=== PATIENT | male | born 1960 | race Caucasian/White ===

== ENCOUNTER → 2018-10-28 | Outpatient (CLI) | payer OTHER ==
--- NOTE | 2018-10-28 18:36 | REP ---
Right ribs five views: There is no rib fracture or other rib abnormality. PA chest: Comparison is 05/25/2013. There is minor atelectasis above the left hemidiaphragm. The lung michael otherwise clear. There is no pneumothorax, hemothorax or pulmonary contusion. There is no pleural thickening. Cardiac size is normal. The kelsea, mediastinum, skeletal structures are unremarkable. Impression: Minor atelectasis inferiorly in the left lung, otherwise negative PA chest. Electronically Signed by Stephen Gomez MD 10/28/2018 06:28 P
== END ==
LOC: M LRY 18:06
PROVIDERS: ATTEND Nurse Practitioner Family
DX: R07.81 Pleurodynia (principal)